=== PATIENT | male | born 1995 | race Caucasian/White ===

== ENCOUNTER 2018-03-03 10:31 | Emergency (ER) | payer BC ==
--- NOTE | 2018-03-03 10:51 | ER Report ---
History and Physical Time Seen By MD: 10:44 Hx. of Stated Complaint: pt reports pain in the L groin and testicle that started sunday HPI/ROS CHIEF COMPLAINT: Left groin pain HISTORY OF PRESENT ILLNESS: 22-year-old male with no past medical history presents with left groin and testicular pain which began 2 days ago. He rates the pain 3 out of 10. He states it feels like a muscle strain sometimes, but at times he notices the pain in his left testicle. No worsening or relieving factors. He denies any recent injury, but states his left testicle may have been at a different angle before. He denies any recent sexual encounters in the last few months. Denies urethral discharge, dysuria, fever, nausea, vomiting, diarrhea or constipation. REVIEW OF SYSTEMS: Respiratory: No cough, no dyspnea. Cardiovascular: No chest pain, no palpitations. Gastrointestinal: No vomiting, no abdominal pain. Musculoskeletal: No back pain. Allergies: Coded Allergies: No Known Drug Allergies (Unverified , 03/03/18) Home Meds No Active Prescriptions or Reported Meds Social History of No past medical history Hx Smoking: No Hx Substance Use Disorder: No Hx Alcohol Use: No Constitutional Vital Sign - Last 24 Hours 03/03/18 03/03/18 03/03/18 03/03/18 10:38 10:38 10:46 11:00 Temp 98.1 Pulse 120 115 Resp 16 B/P (MAP) 156/107 156/107 (123) 133/76 (95) Pulse Ox 94 96 O2 Delivery Room Air 03/03/18 03/03/18 03/03/18 03/03/18 11:01 11:16 11:30 11:51 Pulse 101 98 B/P (MAP) 139/89 (106) 128/82 (97) Pulse Ox 95 95 Physical Exam General Appearance: The patient is alert, has no immediate need for airway protection and no current signs of toxicity. Gastrointestinal: Abdomen is soft and non tender, no masses, bowel sounds normal. Musculoskeletal: Back: No CVA or back tenderness. Extremities have full range of motion and are non tender. Skin: No rashes or lesions. Male genitalia: Normal-appearing circumcised male genitalia. No swelling or erythema of the scrotum. Mild tenderness of the left testicle about the epididymis. No penile discharge or lesions. DIFFERENTIAL DIAGNOSIS: After history and physical exam differential diagnosis was considered for testicular pain including but not limited to epididymitis, orchitis, referred pain from kidney stone, inguinal hernia, and torsion of the testicle. Medical Decision Making Data Points Laboratory Hematology Test 03/03/18 10:55 Urine Color Yellow Urine Clarity Clear Urine pH 6.0 pH (4.8-9.5) Urine Specific Pione[place] 1.020 Urine Protein Negative mg/dL (NEGATIVE) Urine Glucose (UA) Negative mg/dL (NEGATIVE) Urine Ketones Negative mg/dL (NEGATIVE) Urine Blood Negative (NEGATIVE) Urine Nitrite Negative (NEGATIVE) Urine Bilirubin Negative (NEGATIVE) Urine Urobilinogen 0.2 mg/dL (0.2-1.9) Urine Leukocyte Esterase Negative (NEGATIVE) Urine RBC 0 /HPF (0-2/HPF) Urine WBC 0 /HPF (0-5/HPF) Urine Squamous Epithelial Cells None /LPF (</=FEW) Urine Bacteria Negative /HPF (NONE-FEW) Urine Mucus None /HPF (NONE-FEW) Chemistry Test 03/03/18 10:55 Urine Color Yellow Urine Clarity Clear Urine pH 6.0 pH (4.8-9.5) Urine Specific Pioneer 1.020 Urine Protein Negative mg/dL (NEGATIVE) Urine Glucose (UA) Negative mg/dL (NEGATIVE) Urine Ketones Negative mg/dL (NEGATIVE) Urine Blood Negative (NEGATIVE) Urine Nitrite Negative (NEGATIVE) Urine Bilirubin Negative (NEGATIVE) Urine Urobilinogen 0.2 mg/dL (0.2-1.9) Urine Leukocyte Esterase Negative (NEGATIVE) Urine RBC 0 /HPF (0-2/HPF) Urine WBC 0 /HPF (0-5/HPF) Urine Squamous Epithelial Cells None /LPF (</=FEW) Urine Bacteria Negative /HPF (NONE-FEW) Urine Mucus None /HPF (NONE-FEW) Urinalysis Test 03/03/18 10:55 Urine Color Yellow Urine Clarity Clear Urine pH 6.0 pH (4.8-9.5) Urine Specific [place]er 1.020 Urine Protein Negative mg/dL (NEGATIVE) Urine Glucose (UA) Negative mg/dL (NEGATIVE) Urine Ketones Negative mg/dL (NEGATIVE) Urine Blood Negative (NEGATIVE) Urine Nitrite Negative (NEGATIVE) Urine Bilirubin Negative (NEGATIVE) Urine Urobilinogen 0.2 mg/dL (0.2-1.9) Urine Leukocyte Esterase Negative (NEGATIVE) Urine RBC 0 /HPF (0-2/HPF) Urine WBC 0 /HPF (0-5/HPF) Urine Squamous Epithelial Cells None /LPF (</=FEW) Urine Bacteria Negative /HPF (NONE-FEW) Urine Mucus None /HPF (NONE-FEW) EKG/Imaging Imaging Testicular ultrasound shows symmetrical size testicles with symmetrical blood flow. No testicular mass. Possible subtle hyperemia of the left epididymal head , small superior hydrocele, left epididymal cyst, which could represent minimal left epididymitis. ED Course/Re-evaluation ED Course Physical exam is normal. Patient has no risk factors or signs of STIs. UA shows no signs of infection or hematuria. Renal colic appears unlikely. No hernia was appreciated on exam. Scrotal ultrasound shows findings consistent with possible mild epididymitis, no signs of torsion. I do not believe the epididymitis is secondary to a bacterial infection. Patient was instructed to take ibuprofen for pain and follow-up his primary care doctor if his pain is not improved in a few days. Patient is reassured by the findings of today's exam and tests. Decision to Disposition Date: Mar 03, 2018 Decision to Disposition Time: 11:46 Depart Departure Latest Vital Signs Vital Signs Date Time Temp Pulse Resp B/P (MAP) Pulse Ox O2 Delivery O2 Flow Rate FiO2 03/03/18 11:51 128/82 (97) 03/03/18 11:16 98 95 03/03/18 10:38 98.1 16 Room Air Impression: Primary Impression: Testicle pain Additional Impression: Epididymitis Condition: Improved Disposition: HOME OR SELF-CARE New Scripts No Active Prescriptions or Reported Meds Patient Instructions: Epididymitis (ED) Additional Instructions: Take ibuprofen as needed for pain. If pain is not resolved in a few days follow- up with her primary care doctor. Problem Qualifiers VINI BAUM MD Mar 03, 2018 10:51
[2018-03-03 11:51] VITALS: BP 128/82
--- NOTE | 2018-03-03 12:04 | RADIOLOGY IMAGING REPORT ---
FACILITY: [facility] [place]IENT NAME: Donald Araya : 1995 MR: [id number] V: [id number] EXAM DATE: ORDERING PHYSICIAN: VINI BAUM TECHNOLOGIST: Location: [facility] - [place] Patient: Donald Araya : 1995 Visit/Account:[id number] Date of Sevice: 03/03/2018 TESTICULAR HISTORY: left testicule pain COMPARISON: None. FINDINGS: Testes: The right testicle measures 4.3 x 2.2 x 3.0 cm. It has homogeneous echotexture and normal blo od flow. No masses are seen. The left testicle measures 4.3 x 1.9 x 2.7 cm. It has homogeneous echotexture and normal blood flow. Epididymides: The right epididymal head measures 10 mm and appears normal. The left epididymal head measures 7 mm. It may be slightly hypervascular. It does contain a small 4 m m cyst. Hydrocele: There is a tiny hydrocele the left side superiorly. Varicocele: None seen. IMPRESSION: 1. The testicles have symmetrical size and symmetrical blood flow. No testicular mass is seen. 2. There may be subtle hyperemia in the left epididymal head. There is a small superior hydrocele the left side. There is a left epididymal cyst. These findings could represent minimal left epididymitis but correlation clinical exam is recommended. Report Dictated By: Petey Em MD at 03/03/2018 11:57 AM Report E-Signed By: Petey Em MD at 03/03/2018 12:00 PM WSN:[id number]
== END 2018-03-03 11:52 | disposition home or self-care (01) ==
LOC: ER 10:59
DX: N45.1 Epididymitis (principal); N50.812 Left testicular pain
CPT/HCPCS: 76870; 81001; 99283